=== PATIENT | female | born 1980 | race Caucasian/White ===

== ENCOUNTER 2020-03-12 15:55 | Outpatient (REF) | payer BC, SELFPAY ==
[2020-03-16 20:49] LABS: SARS-CoV-2 RNA Undetected (Undetected); SARS-CoV-2 Specimen Source Nasopharynx
== END 2020-03-12 16:15 ==
LOC: NCHCN 15:55
PROVIDERS: PCP Family Medicine; Visit Provider Family Medicine
DX: Z11.59 Encounter for screening for other viral diseases (principal)
CPT/HCPCS: U0003

== ENCOUNTER 2022-09-06 13:38 | Outpatient (REF) | payer OTHER, SELFPAY ==
--- NOTE | 2022-09-06 13:00 | PAPFT_PTH ---
PATIENT: Colleen Mast LOC: [facility]#:[id number] AGE/SX: 42/F ROOM: RE09/06/[address]: Megan Epstein : 1980 BED: DIS: 09/06/2022 SPEC #: [id number] RECD: 09/07/22 13:03 STATUS: JO RECon #: [id number] MAYRA: 09/06/22 13:[address]: Megan Epstein DEPT: [facility] Cytology RECD BY: Latisha Jaeger ENTERED: 09/07/22 13:03 SP TYPE: PAPFT OTHR DR: Santiago Morris Tissues: 1 - CX/ENDOCX FOR PAP SMEARS Procedures: PAP THIN PREP/[facility] Screening HPV DNA PROBE Comments: [id number]
== END 2022-09-06 13:39 | disposition home or self-care (01) ==
LOC: NCHCN 13:38
PROVIDERS: PCP Family Medicine; Visit Provider Family Medicine
DX: Z12.4 Encounter for screening for malignant neoplasm of cervix (principal); Z11.51 Encounter for screening for human papillomavirus (HPV)
CPT/HCPCS: 88142; 87624

== ENCOUNTER 2024-08-08 21:10 | Outpatient (REF) | payer OTHER, SELFPAY ==
[2024-08-08 21:31] LABS: Anion Gap 6.9 mmol/L (3-11); BUN 13 mg/dL (7-18); CO2 29.1 mmol/L (21.0-32.0); CREATININE 0.8 mg/dL (0.55-1.02); Calcium 9.3 mg/dL (8.5-10.1); Calculated LDL 51 mg/dL (<100); Chloride 104 mmol/L (98-107); Cholesterol 160 mg/dL (<200); Estimated GFR 92.54 (mL/min/1.73m2); Glucose 112 mg/dL (74-106); HDL Cholesterol 90 mg/dL (40-60); Potassium 3.8 mmol/L (3.5-5.1); Sodium 140 mmol/L (136-145); Triglyceride 99 mg/dL (<150); Vitamin D 25 Total 20.6 ng/mL (30-100)
== END 2024-08-08 21:11 | disposition home or self-care (01) ==
LOC: NCHCN 21:10
PROVIDERS: PCP Family Medicine; Visit Provider Family Medicine
DX: Z00.00 Encounter for general adult medical examination without abnormal findings (principal)
CPT/HCPCS: 80048; 80061; 82306